=== PATIENT | female | born 1955 | race Hispanic/Latino ===

== ENCOUNTER → 2019-02-23 | Day surgery (SDC) | payer OTHER ==
[~2019-02-23] MED LIST: B&O 60MG R/S 60 MG SUPP PR ONE; CEFTRIAXONE SOD 1 GM/NS 50 ML 50 ML IV ONE; DEXAMETHASONE SOD PHOS INJ 4 MG/ML VIAL ONE; DEXILANT60 MG PO; FENTANYL CITRATE/PF 100MCG/2 ML INJ ONE; IOPAMIDOL 610MG/1ML 300 MG/ML VIAL IV ONE; LIDOCAINE HCL 2% LOCAL INJ 5 ML SDV VIAL INJ ONE; MIDAZOLAM HCL 2 MG/2 ML VIAL ONE; OMEGA 3 XL PO; ONDANSETRON HCL INJ 2MG/ML 2ML 2 MG/ML VIAL ONE; PROPOFOL IV EMULSION 10 MG/ML 20 ML VIAL ONE; SEVOFLURANE INHAL SOLN 250 ML PEN BTL ONE; [UNRECOGNIZED DRUG - REMARK] PO
--- OUTSIDE RECORDS SUMMARY | 2019-02-23 07:22 | XMS REPORT | Clinical Summary ---
Author Author [facility] Organization [facility] Address Unknown Phone Unavailable Care Team Providers Care Assembler Movement Name Role Phone Christine Leo MD PCP Unavailable Allergies Comments Active Allergy Reactions Severity Noted Date No Known Allergies 04/24/2016 Medications End Date Status Medication Sig Dispensed Refills Start Date Active omeprazole (PriLOSEC) 40 TAKE 1 9 capsule 0 02/09/ MG capsule CAPSULE BY 7 MOUTH EVERY DAY Active Problems Problem Noted Date Amenorrhea 02/15/2016 Chronic gastritis 02/15/2016 Constitutional aplastic anemia 02/15/2016 Dehydration 02/15/2016 Dysuria 02/15/2016 Helicobacter pylori gastrointestinal tract infection 02/15/2016 Hypothyroidism 02/15/2016 Multiple-type hyperlipidemia 02/15/2016 Hyperinsulinism 02/15/2016 Right upper quadrant pain 02/15/2016 Vitamin B deficiency 02/15/2016 Vitamin D deficiency 02/15/2016 Encounters Care Team Description Date Type Specialty Ori Alvarado MD Epigastric pain; Dyspepsia; Chronic constipation 12/28/2018 Hospital Radiology Encounter Ori Alvarado MD Epigastric pain (Primary Dx); Dyspepsia; Chronic constipation 12/21/2018 Transcribe Access Orders after 02/22/2018 Family History Medical History Relation Name Comments Lung cancer Mother Relation Name Status Comments Mother Social History Date Tobacco Use Types Packs/Day Years Used Never Smoker Alcohol Use Drinks/Week oz/Week Comments Yes 2 Standard 1.2 drinks or equivalent Sex Assigned at Date Recorded Not on file Industry Job Start Date Occupation Not on file Not on file Not on file Travel End Travel History Travel Start No recent travel history available. Last Filed Vital Signs Not on file Plan of Treatment Health Maintenance Due Date Last Done Comments CERVICAL CANCER SCREENING 1975 BREAST CANCER SCREENING 2004 COLON CANCER SCREENING 2004 SHINGLES VACCINES (#1) 2004 INFLUENZA VACCINE 05/12/2019 Procedures Comments Procedure Name Priority Date/Time Associated Diagnosis US ABDOMEN COMPLETE Routine 12/28/2018 Epigastric pain 9:12 AM CDT Dyspepsia Chronic constipation after 02/22/2018 Results * US Abdomen Complete (12/28/2018 9:12 AM CDT) Narrative Performed At EXAM: US ABDOMEN COMPLETE RADIANT CLINICAL DATA:R10.13 Epigastric pain, R10.13 Epigastric pain, EPIGASTRIC PAINDYSPEPSIACHRONIC CONSTIPATION COMPARISON: None. FINDINGS: A complete abdominal ultrasound was performed. LIVER: The liver is echogenic from fatty infiltration without focal mass or intrahepatic biliary dilation. GALBLADDER/CBD:The gallbladder is nondistended with normal wall thickness. No gallstones are present. There is no pericholecystic fluid. The common bile duct is normal in diameter at 2 mm. PORTAL VEIN: .The main portal vein is patent with color Doppler flow. RETROPERITONEUM:The visualized pancreas, abdominal aorta, and IVC are unremarkable SPLEEN: The spleen is normal. KIDNEYS:Both kidneys are normal in size without stones or hydronephrosis. There is a complex cystic lesion in the right kidney measures 6.5 cm with some mural soft tissue and minimal calcification. OTHER: There is no ascites. There is no pleural effusion. IMPRESSION: Fatty liver. Complex cystic lesion in the right kidney. Recommend further evaluation with renal focus CT or MRI. [id number] Procedure Note Interface, Radiology Results Incoming - 12/28/2018 9:23 AM CDT EXAM: US ABDOMEN COMPLETE CLINICAL DATA: R10.13 Epigastric pain, R10.13 Epigastric pain, EPIGASTRIC PAIN DYSPEPSIA CHRONIC CONSTIPATION COMPARISON: None. FINDINGS: A complete abdominal ultrasound was performed. LIVER: The liver is echogenic from fatty infiltration without focal mass or intrahepatic biliary dilation. GALBLADDER/CBD: The gallbladder is nondistended with normal wall thickness. No gallstones are present. There is no pericholecystic fluid. The common bile duct is normal in diameter at 2 mm. PORTAL VEIN: .The main portal vein is patent with color Doppler flow. RETROPERITONEUM: The visualized pancreas, abdominal aorta, and IVC are unremarkable SPLEEN: The spleen is normal. KIDNEYS: Both kidneys are normal in size without stones or hydronephrosis. There is a complex cystic lesion in the right kidney measures 6.5 cm with some mural soft tissue and minimal calcification. OTHER: There is no ascites. There is no pleural effusion. IMPRESSION: Fatty liver. Complex cystic lesion in the right kidney. Recommend further evaluation with renal focus CT or MRI. [id number] Performing Organization Address City/State/Zipcode Phone Number [facility]ICH[facility] [address] [place] [address] after 02/22/2018 Insurance Payer Benefit Subscriber ID Type Phone Address Plan / Group HUMANA HUMANA xxxxxxxxx PPO CHOICE CARE PPO Advance Directives Patient has advance care planning documents on file. For more information, khanh oliveros contact: Myles Viera [address] [place] [address]
[2019-02-23 09:55] VITALS: BP 134/75
--- NOTE | 2019-04-20 03:10 | Operative Report ---
DATE OF PROCEDURE: 02/23/2019 SURGEON: Jordan Calix MD PREOPERATIVE DIAGNOSES: 1. Urinary tract infections. 2. Urge incontinence. POSTOPERATIVE DIAGNOSES: 1. Urinary tract infections. 2. Urge incontinence. 3. Grade 2 cystocele. 4. Grade 1 rectocele. 5. Urethral hypermobility. 6. Atrophic (senile) vaginitis. OPERATIONS PERFORMED: 1. Cystourethroscopy with bilateral ureteral catheterization and retrograde ureteropyelography (separate procedure performed for the urinary tract infections). 2. Interpretation of retrograde ureteropyelography. 3. Supervision of fluoroscopy, no radiologist is present. 4. Pelvic examination under anesthesia. ANESTHESIA: General. COMPLICATIONS: None. CLINICAL SUMMARY: Munira Leo is a 63-year-old woman with recurrent urinary tract infection. She is brought for the above procedures. She is aware of the risks of bleeding, infection, injury to adjacent structures, need for additional procedures and elected to proceed. She has bilateral renal cysts, the largest is a 6.6 cm complex cyst on the right-hand side. OPERATIVE PROCEDURE IN DETAIL: Informed consent was verified. Munira Leo was properly identified, taken to the operating room, placed on the cystoscopy table in supine position. Anesthesia was uneventfully begun. The patient was then carefully and gently repositioned in the dorsal lithotomy position with all pressure points well padded. Her genitalia were prepared and draped in usual sterile fashion. The cystoscope sheath with obturator in place was atraumatically inserted into the patient's urethra and bladder was drained. Panendoscopy revealed no suspicious mucosal lesions. There were no tumors. There were no stones. There were no diverticula. Grade 1-2 trabeculations were noted. There were multiple circular pinkish mucosal lesions consistent with chronic cystitis. An 8-Taiwanese catheter was used to cannulate each ureter and retrograde ureteropyelography was performed. Interpretation of retrograde ureteropyelography: Contrast was instilled in retrograde fashion bilaterally. There were no tumors, no stones, and no diverticula. Unobstructed drainage was observed bilaterally fluoroscopically. The patient's bladder was drained. The cystoscope was withdrawn. Pelvic examination revealed a grade 2 cystocele, grade 1 rectocele. There was urethral hypermobility and atrophic vaginitis. No obvious mucosal lesions were identified. There were no palpable pelvic masses that could be appreciated. The patient was then uneventfully reversed from anesthesia and taken to recovery room in stable condition. Explicit postoperative instructions were given and we will follow the patient up in the office. On followup visits, urodynamic study will be pursued. In the meantime, the patient will be placed on suppression with nitrofurantoin. Jordan Calix MD OH/MODL /[id number] cc: Gildardo Grant MD
== END | disposition home or self-care (01) ==
LOC: OR 07:19
PROVIDERS: ATTEND Urology
DX: N39.0 Urinary tract infection, site not specified (principal); N39.41 Urge incontinence; N81.10 Cystocele, unspecified; N81.6 Rectocele; N36.41 Hypermobility of urethra; N95.2 Postmenopausal atrophic vaginitis; N28.1 Cyst of kidney, acquired; N32.89 Other specified disorders of bladder; K28.9 Gastrojejunal ulcer, unspecified as acute or chronic, without hemorrhage or perforation; K21.9 Gastro-esophageal reflux disease without esophagitis; K58.9 Irritable bowel syndrome, unspecified; K76.0 Fatty (change of) liver, not elsewhere classified; Z01.810 Encounter for preprocedural cardiovascular examination; Z84.1 Family history of disorders of kidney and ureter
CPT/HCPCS: 52005; 74420; 93005; C1758; J0696; J1100; J2001; J2250; J2405; J2704; Q9967; J3010

== ENCOUNTER → 2019-07-07 | Outpatient (CLI) | payer MEDICARE ==
[~2019-07-07] MED LIST changes: -B&O 60MG R/S 60 MG SUPP PR ONE; -CEFTRIAXONE SOD 1 GM/NS 50 ML 50 ML IV ONE; -DEXAMETHASONE SOD PHOS INJ 4 MG/ML VIAL ONE; -FENTANYL CITRATE/PF 100MCG/2 ML INJ ONE; +GADOBENATE DIMEGLUMINE 1 ML IV ONE; -IOPAMIDOL 610MG/1ML 300 MG/ML VIAL IV ONE; -LIDOCAINE HCL 2% LOCAL INJ 5 ML SDV VIAL INJ ONE; -MIDAZOLAM HCL 2 MG/2 ML VIAL ONE; -ONDANSETRON HCL INJ 2MG/ML 2ML 2 MG/ML VIAL ONE; -PROPOFOL IV EMULSION 10 MG/ML 20 ML VIAL ONE; -SEVOFLURANE INHAL SOLN 250 ML PEN BTL ONE; +SODIUM CHLORIDE 0.9% 100 ML 100 ML ONE
[2019-07-07 09:20] LABS: BLOOD UREA NITROGEN 12 mg/dL (7-26); BUN/CREATININE RATIO 17 (6-25); CREATININE, SERUM 0.69 mg/dL (0.57-1.11); EST GLOMERULAR FILTRATION RATE > 60 ML/MIN (60-)
--- NOTE | 2019-07-08 09:05 | Diagnostic Imaging Report ---
MRI of the abdomen, with and without contrast. History: Renal cyst. Comparison: None available. Technique: Proton density weighted coronal and axial imaging of the abdomen was performed pre contrast and 3-D MRA was performed post-IV administration of 15 cc of MultiHance. Discussion: A 6.4 x 5.4 x 6.0 cm oval circumscribed homogeneously T1 hyperintense T2 hyperintense lesion is present in the upper pole of the right kidney. There is no evidence of mural nodularity or enhancement, consistent with a benign cyst. 8 and 10 mm cysts are also noted within the left kidney. There is no evidence of hydronephrosis. The liver, spleen, pancreas, and adrenal glands are normal. 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 Bowel is unremarkable. Abdominal aorta is within normal limits for size. IMPRESSION: Large right and small left renal cysts, benign. Signed by: Henry Cassidy on 07/08/2019 9:02 AM
== END ==
LOC: MRI 08:20
PROVIDERS: ATTEND Urology
DX: N28.1 Cyst of kidney, acquired (principal)
CPT/HCPCS: 36415; 74183; 82565; 84520; A9577

== ENCOUNTER → 2019-09-29 | Outpatient (CLI) | payer OTHER ==
[~2019-09-29] MED LIST changes: -GADOBENATE DIMEGLUMINE 1 ML IV ONE; -SODIUM CHLORIDE 0.9% 100 ML 100 ML ONE
[2019-09-29 11:49] LABS: BLOOD UREA NITROGEN 8 mg/dL (7-26); BUN/CREATININE RATIO 11 (6-25); EST GLOMERULAR FILTRATION RATE > 60 ML/MIN (60-)
--- NOTE | 2019-09-30 15:11 | Diagnostic Imaging Report ---
TECHNIQUE: MRI of the abdomen WITHOUT and WITH intravenous contrast. INDICATION: 63-year-old woman with neoplasm of kidney. COMPARISON: Abdomen MRI 07/07/2019. FINDINGS: LOWER THORAX: Unremarkable. LIVER: No hepatic signal abnormality. No focal hepatic lesions. BILIARY: Gallbladder is unremarkable. No biliary ductal dilatation or filling defect. SPLEEN: No splenomegaly. PANCREAS: No focal masses or ductal dilatation. ADRENALS: No adrenal nodules. KIDNEYS/URETERS: No hydronephrosis or solid mass lesions. Unchanged 6.3 x 5.3 cm simple cyst in the right upper pole. Unchanged 1.2 x 0.8 cm simple cyst in the left upper pole. Decreased size from 0.8 cm to 0.3 cm of a cyst in the left interpolar region; there is now T2 hypointensity in the region of this cyst which may represent the collapsed cyst wall or a small amount of debris within the cyst. PERITONEUM/RETROPERITONEUM: No free fluid. LYMPH NODES: No lymphadenopathy. VESSELS: Unremarkable. GI TRACT: No distention or wall thickening. Colonic diverticula. BONES AND SOFT TISSUES: Degenerative changes of the visualized spine with unchanged mild leftward convex curvature centered in the mid lumbar spine. Soft tissues are unremarkable. OTHER FINDINGS: Unchanged thickened and heterogeneous appearance of the endometrium. IMPRESSION: Unchanged simple cysts in the upper poles of both kidneys. Decreased size of a cyst in the left interpolar kidney. Unchanged thickened and heterogeneous appearance of the endometrium. Pelvic ultrasound may be obtained for further evaluation. Signed by: Michael Liriano MD on 09/30/2019 3:07 PM
== END ==
LOC: MRI 10:59
PROVIDERS: ATTEND Urology
DX: D41.00 Neoplasm of uncertain behavior of unspecified kidney (principal)
CPT/HCPCS: 36415; 74183; 82565; 84520

== ENCOUNTER → 2025-03-29 | Outpatient (REF) | payer MEDICARE | LOC: NM 08:41 | PROVIDERS: ATTEND Internal Medicine Gastroenterology | DX: I10 Essential (primary) hypertension (principal); K31.89 Other diseases of stomach and duodenum; Z68.31 Body mass index [BMI] 31.0-31.9, adult; Z71.3 Dietary counseling and surveillance; Z78.9 Other specified health status | CPT/HCPCS: 78264; A9541 ==